=== PATIENT | male | born 1970 | race Caucasian/White ===

== ENCOUNTER 2020-07-13 09:50 | Emergency (ER) | payer OTHER ==
[~2020-07-13] VITALS: Ht 160 cm; Wt 74.3 kg
--- NOTE | 2020-07-13 10:45 | NUR ---
seen at [facility] for generalized swelling uppers/lowers 2+ lowers. told is r/t diabetes. no sob. no clinical therapist. 2+ dps. call berry. at bedside. as
[2020-07-13] MEDS ORDERED: GABA300C PO (10:50)
[2020-07-13] MEDS ORDERED: AMLO-211 PO (10:50)
[2020-07-13] MEDS ORDERED: LISI2.5T PO (10:50)
[2020-07-13 11:40] LABS: BASOPHILS % (AUTO) 1 % (0-1); EOSINOPHILS % (AUTO) 3 % (1-7); LYMPHOCYTES % (AUTO) 28 % (22-44); MEAN CORPUSCULAR HEMOGLOBIN 31.1 pg (27.5-34.5); MEAN CORPUSCULAR HGB CONC 34.2 g/dL (33.2-36.2); MEAN PLATELET VOLUME 7.2 fL (7.4-10.4); MONOCYTES % (AUTO) 9 % (2-9); NEUTROPHILS % (AUTO) 59 % (42-75); PLATELET COUNT 417 x10^3/uL (130-400); RED CELL DISTRIBUTION WIDTH 14.8 % (9.4-14.8)
[2020-07-13 11:42] LABS: MD NO
[2020-07-13 11:51] LABS: ALANINE AMINOTRANSFERASE 17 U/L (12-78); ANION GAP 7 mmol/L (5-15); CALCIUM 8.1 mg/dL (8.5-10.1); CHLORIDE 110 mmol/L (98-107); CREATININE 1.38 mg/dL (0.7-1.3)
--- NOTE | 2020-07-13 11:53 | NUR ---
resting in bed awaiting labs cxr clear. bp high. sts no longer sees pcp. sts took home bp meds. also c/o blurry vision. no alexis. as
[2020-07-13 11:56] LABS: ALKALINE PHOSPHATASE 127 U/L (45-117); BILIRUBIN,TOTAL 0.1 mg/dL (0.2-1.0); TOTAL PROTEIN 6.5 g/dL (6.4-8.2)
--- NOTE | 2020-07-13 12:12 | NUR ---
PT RESTING IN [facility]. UP FOR RECHECK. NO NEEDS AT THIS TIME
[2020-07-13 13:01] LABS: TROPONIN I < 0.015 ng/mL (0.000-0.045)
[2020-07-13 13:30] VITALS: BP 166/99
--- NOTE | 2020-07-13 13:31 | NUR ---
TROP NEG. NAD. AWAITING MD. VARGHESE.
== END 2020-07-13 14:02 | disposition home or self-care (01) ==
LOC: ED 14:00
DX: R60.0 Localized edema (principal); N28.9 Disorder of kidney and ureter, unspecified; R07.9 Chest pain, unspecified; R94.31 Abnormal electrocardiogram [ECG] [EKG]; I10 Essential (primary) hypertension; E11.9 Type 2 diabetes mellitus without complications; Z90.89 Acquired absence of other organs; F17.210 Nicotine dependence, cigarettes, uncomplicated
CPT/HCPCS: 36415; 71045; 80053; 83880; 84484; 85025; 93005; 99285